=== PATIENT | female | born 1975 | race Caucasian/White ===

== ENCOUNTER → 2021-09-09 08:15 | Outpatient (BNVA) | payer OTHER, SELFPAY | PROVIDERS: PCP Internal Medicine; Visit Provider Psychiatry & Neurology Neurology ==

== ENCOUNTER 2023-09-12 15:37 | Outpatient (AMB) | payer OTHER, SELFPAY ==
--- NOTE | 2023-09-12 15:49 | MHC.OFFVIS ---
Intake Vital Signs 09/12/23 15:50 Height 5 ft 5 in Weight 174 lb BMI 29.0 BP 108/64 Blood Pressure Location Rt brachial Position Sitting Respiration 16 Pulse 76 Pulse Source Pulse Oximeter Pulse Oximetry (%) 99 Oxygen Delivery Method Room Air Intake Visit Reasons: Follow up-Conf Intake Note: Pt presents to the office for a follow up for seizures. SHe denies having any episodes since her last visit in 2021. Seam Presser Required: No Allergies No Known Allergies Allergy (Verified 09/12/23 15:49) Medication List - Last Reconciled 09/12/23 by Katherine Faulkner MD apixaban (Eliquis) 5 mg PO BID oxcarbazepine 150 mg PO DAILY pregabalin 150 mg PO BID HPI HPI Comments History of Present Illness Details 48-year-old female comes for follow-up of complex partial seizures insomnia and cognitive issues. Her last visit was in March of 2022 and she has been doing well since then. she is on Trileptal 150 qam( bid she was very tired). and pregabalin 150mg bid . No auras. she still reports cognitive issues she frequently forgets conversations.At work she changed her position so she does not do any complex tasks. She works at [employer] She is on Eliquis for factor 5 a Leiden. EEG in 2016 was normal and a repeat EEG was normal. she has not seen a psychologist yet [facility] Medical History Anxiety Cognitive disorder DVT (deep vein thrombosis) in Factor 5 Leiden mutation, heterozygous Complex partial seizures Anxiety Depression Surgical History No pertinent past surgical history Family History Mother Cancer Social History Alcohol intake: never Patient Tobacco Use Status: Never used Tobacco Physical Exam Vital Signs: Last Vital Signs Pulse 76 09/12/23 15:50 Resp 16 09/12/23 15:50 BP 108/64 09/12/23 15:50 Pulse Ox 99 09/12/23 15:50 Oxygen Delivery Method Room Air 09/12/23 15:50 BMI result Body Mass Index 29.0 Const General: cooperative and healthy appearing Orientation/consciousness: patient oriented x3 Neuro General: patient oriented x3, gait normal, tone normal and moves all extremities Cranial nerves: Yes CN's II-XII intact bilaterally Cognition (Neuro): normal cognition Psych Speech and movement: Pressured speech present Affect: Anxious affect present Assessment & Plan Assessment & Plan (1) Complex partial seizures: Code(s): G40.209 - Localization-related (focal) (partial) symptomatic epilepsy and epileptic syndromes with complex partial seizures, not intractable, without status epilepticus (2) Cognitive disorder: Code(s): F09 - Unspecified mental disorder due to known physiological condition (3) Anxiety: Code(s): F41.9 - Anxiety disorder, unspecified Plan Continue Trileptal 150 mg qam Continue pregabalin 150 mg b.i.d. Psychology referral Orders: Orders Comprehensive Met. Panel Today F09 - Unspecified mental disorder due to known physiological condition Complete Blood Count Auto Diff Today F09 - Unspecified mental disorder due to known physiological condition Referrals Psychology Referral F41.9 - Anxiety disorder, unspecified Medications: Changed From oxcarbazepine 150 mg PO BID 180 tabs 3RF To oxcarbazepine 150 mg PO DAILY 180 tabs 3RF Coding Level of Care Code Est Pt Level 4 (54632) Diagnoses Complex partial seizures G40.209 Cognitive disorder F09 Anxiety F41.9
[2023-09-12 15:50] VITALS: BP 108/64; PULSE 76; RESP 16; O2SAT 99; BMI 29.0
== END 2023-09-12 16:07 | disposition home or self-care (01) ==
PROVIDERS: PCP Internal Medicine; Visit Provider Psychiatry & Neurology Neurology
DX: G40.209 Localization-related (focal) (partial) symptomatic epilepsy and epileptic syndromes with complex partial seizures, not intractable, without status epilepticus (principal); R41.89 Other symptoms and signs involving cognitive functions and awareness; F41.9 Anxiety disorder, unspecified
CPT/HCPCS: 99214

== ENCOUNTER → 2023-09-12 15:37 | Outpatient (BNVA) | payer OTHER, SELFPAY | PROVIDERS: PCP Internal Medicine; Visit Provider Psychiatry & Neurology Neurology ==

== ENCOUNTER 2023-09-12 16:09 | Outpatient (REF) | payer OTHER, SELFPAY ==
[2023-09-12 17:49] LABS: MANUAL DIFF FLAG NO
[2023-09-12 18:16] LABS: Basophils Absolute Auto 0.1 X10*3/uL (0.0-0.2); Eosinophils Absolute Auto 0.1 X10*3/uL (0.0-0.4); Eosinophils Percent Auto 1.9 % (0-4); Hematocrit 37.5 % (37.0-47.0); Hemoglobin 12.6 g/dl (12.0-16.0); Imm Gran Abs Auto 0.01 X10*3/uL (0.00-0.03); Imm Gran Pct Auto 0.2 % (0.0-0.4); Lymphocytes Absolute Auto 1.4 X10*3/uL (1.2-4.9); Lymphocytes Percent Auto 26.1 % (20-40); Mean Corpuscular HGB Conc 33.6 g/dl (31.0-35.0); Mean Corpuscular Hemoglobin 29.8 pg (27.0-33.0); Mean Corpuscular Volume 88.7 fL (80.0-98.0); Mean Platelet Volume 10.2 fL (9.4-12.3); Monocytes Absolute Auto 0.7 X10*3/uL (0.1-1.2); Monocytes Percent Auto 13.4 % (2-11); Neutrophils Percent Auto 57.4 % (45-73); Platelet Count 220 X10*3/uL (160-400); Red Blood Count 4.23 X10*6/uL (4.20-5.50); Red Cell Distribution Width 12.1 % (11.0-16.0); White Blood Count 5.2 X10*3/uL (4.8-10.8)
[2023-09-12 18:29] LABS: Alanine Aminotransferase 20 U/L (0-31); Albumin Level 4.5 g/dL (3.5-5.0); Alkaline Phosphatase 51 U/L (39-117); Anion Gap 8 (12-20); Aspartate Amino Transferase 19 U/L (5-31); Bilirubin Total 0.4 mg/dL (0.0-1.0); Blood Urea Nitrogen 16 mg/dL (9-16); Calcium 8.9 mg/dL (8.4-10.2); Carbon Dioxide 28 mmol/L (22-29); Chloride 106 mmol/L (96-108); Estimated Glomerular Filt Rate > 60; Glucose Random 92 mg/dL (60-115); Potassium 3.9 mmol/L (3.3-5.1); Sodium 138 mmol/L (135-145); Total Protein 6.9 g/dL (6.5-8.0)
== END 2023-09-12 16:10 | disposition home or self-care (01) ==
LOC: HO.HKASLDS 16:09
PROVIDERS: Visit Provider Psychiatry & Neurology Neurology
DX: F09 Unspecified mental disorder due to known physiological condition (principal)
CPT/HCPCS: 36415; 80053; 85025

== ENCOUNTER 2024-03-20 15:32 | Outpatient (AMB) | payer OTHER, SELFPAY ==
--- NOTE | 2024-03-20 15:36 | MHC.OFFVIS ---
Vital Signs 03/20/24 15:37 Height 5 ft 5 in Weight 166 lb 8 oz BMI 27.7 BP 102/62 Blood Pressure Location Rt brachial Position Sitting Respiration 16 Pulse 72 Pulse Source Palpation Intake Visit Reasons: 6 MONTH F/U Intake Note: Pt presents for a 6 month follow up for seizures. Experimental Physicist Required: No Allergies No Known Allergies Allergy (Verified 03/20/24 15:37) HPI Comments Details: 48-year-old female comes for follow-up of complex partial seizures insomnia and cognitive issues. No seizures. she is on Trileptal 150 qam( bid she was very tired). and pregabalin 150mg bid . No auras. she still reports cognitive issues she frequently forgets conversations.At work she changed her position so she does not do any complex tasks. She works at [employer]. She is on Eliquis for factor 5 a Leiden. EEG in 2017 was normal and a repeat EEG was normal. Mood is stable . she used to see a psychologist [facility] Medical History Anxiety Cognitive disorder DVT (deep vein thrombosis) in Factor 5 Leiden mutation, heterozygous Complex partial seizures Anxiety Depression Surgical History No pertinent past surgical history Family History Mother Cancer Social History Alcohol intake: never Patient Tobacco Use Status: Never used Tobacco Physical Exam Vital Signs: Last Vital Signs Pulse 72 03/20/24 15:37 Resp 16 03/20/24 15:37 BP 102/62 03/20/24 15:37 BMI result Body Mass Index 27.7 Const General: cooperative and healthy appearing Orientation/consciousness: patient oriented x3 Neuro General: patient oriented x3, gait normal, tone normal and moves all extremities Cranial nerves: Yes CN's II-XII intact bilaterally Cognition (Neuro): normal cognition Assessment & Plan Assessment & Plan (1) Complex partial seizures: Code(s): G40.209 - Localization-related (focal) (partial) symptomatic epilepsy and epileptic syndromes with complex partial seizures, not intractable, without status epilepticus Category: Medical (2) Cognitive disorder: Code(s): F09 - Unspecified mental disorder due to known physiological condition Category: Medical (3) Anxiety: Code(s): F41.9 - Anxiety disorder, unspecified Category: Medical Plan Continue Trileptal 150 mg qam Continue pregabalin 150 mg b.i.d. Consider Psychology referral Orders: Orders Complete Blood Count Auto Diff Today G40.209 - Localization-related (focal) (partial) symptomatic epilepsy and epileptic syndromes with complex partial seizures, not intractable, without status epilepticus Comprehensive Met. Panel Today G40.209 - Localization-related (focal) (partial) symptomatic epilepsy and epileptic syndromes with complex partial seizures, not intractable, without status epilepticus Coding Level of Care Code Est Pt Level 4 (54281) Diagnoses Complex partial seizures G40.209 Cognitive disorder F09 Anxiety F41.9
[2024-03-20 15:37] VITALS: BP 102/62; PULSE 72; RESP 16; BMI 27.7
== END 2024-03-20 15:47 | disposition home or self-care (01) ==
PROVIDERS: PCP Internal Medicine; Visit Provider Psychiatry & Neurology Neurology
DX: G40.209 Localization-related (focal) (partial) symptomatic epilepsy and epileptic syndromes with complex partial seizures, not intractable, without status epilepticus (principal); F09 Unspecified mental disorder due to known physiological condition; F41.9 Anxiety disorder, unspecified
CPT/HCPCS: 99214

== ENCOUNTER → 2024-03-20 15:32 | Outpatient (BNVA) | payer OTHER, SELFPAY | PROVIDERS: PCP Internal Medicine; Visit Provider Psychiatry & Neurology Neurology ==

== ENCOUNTER 2024-03-20 15:48 | Outpatient (REF) | payer OTHER, SELFPAY ==
[2024-03-20 17:18] LABS: MANUAL DIFF FLAG NO
[2024-03-20 17:24] LABS: Hematocrit 34.5 % (37.0-47.0); Hemoglobin 11.8 g/dl (12.0-16.0); Mean Corpuscular HGB Conc 34.2 g/dl (31.0-35.0); Mean Corpuscular Hemoglobin 29.7 pg (27.0-33.0); Mean Corpuscular Volume 86.9 fL (80.0-98.0); Red Blood Count 3.97 X10*6/uL (4.20-5.50); Red Cell Distribution Width 12.3 % (11.0-16.0); White Blood Count 5.3 X10*3/uL (4.8-10.8)
[2024-03-20 17:25] LABS: Basophils Percent Auto 0.8 % (0-2); Eosinophils Absolute Auto 0.1 X10*3/uL (0.0-0.4); Eosinophils Percent Auto 2.4 % (0-4); Imm Gran Abs Auto 0.01 X10*3/uL (0.00-0.03); Imm Gran Pct Auto 0.2 % (0.0-0.4); Lymphocytes Absolute Auto 2.5 X10*3/uL (1.2-4.9); Lymphocytes Percent Auto 46.3 % (20-40); Mean Platelet Volume 10.1 fL (9.4-12.3); Monocytes Absolute Auto 0.5 X10*3/uL (0.1-1.2); Monocytes Percent Auto 8.4 % (2-11); Neutrophils Absolute Auto 2.2 x10*3/uL (2.0-8.3); Neutrophils Percent Auto 41.9 % (45-73); Platelet Count 231 X10*3/uL (160-400)
[2024-03-20 17:38] LABS: Alanine Aminotransferase 16 U/L (0-31); Albumin Level 4.3 g/dL (3.5-5.0); Alkaline Phosphatase 40 U/L (39-117); Anion Gap 11 (12-20); Aspartate Amino Transferase 17 U/L (5-31); Bilirubin Total 0.5 mg/dL (0.0-1.0); Blood Urea Nitrogen 13 mg/dL (9-16); Calcium 9.1 mg/dL (8.4-10.2); Carbon Dioxide 26 mmol/L (22-29); Chloride 106 mmol/L (96-108); Estimated Glomerular Filt Rate > 60; Glucose Random 88 mg/dL (60-115); Potassium 3.6 mmol/L (3.3-5.1); Sodium 139 mmol/L (135-145); Total Protein 6.8 g/dL (6.5-8.0)
== END 2024-03-20 15:49 | disposition home or self-care (01) ==
LOC: HO.HKASLDS 15:48
PROVIDERS: Visit Provider Psychiatry & Neurology Neurology
DX: G40.209 Localization-related (focal) (partial) symptomatic epilepsy and epileptic syndromes with complex partial seizures, not intractable, without status epilepticus (principal)
CPT/HCPCS: 36415; 80053; 85025